=== PATIENT | female | born 1975 | race African-American/Black ===

== ENCOUNTER 2021-02-03 01:14 | Emergency (ER) | payer SELFPAY ==
--- NOTE | 2021-02-03 02:00 | NUR ---
PT REFUSING TRIAGE AT THIS TIME. PT SITTING IN LOBBY.
--- NOTE | 2021-02-03 02:33 | NUR ---
CALLED NAME AT THIS TIME, NO ANSWER IN LOBBY OR OUTSIDE.
--- NOTE | 2021-02-03 02:41 | NUR ---
PATIENT ELOPED FROM FACILITY. DISCHARGE INSTRUCTIONS NOT GIVEN TO PATIENT. DR. HERNANDEZ NOTIFIED.
== END 2021-02-03 02:42 | disposition left against medical advice (07) ==
LOC: MED 01:14
DX: Z53.21 Procedure and treatment not carried out due to patient leaving prior to being seen by health care provider (principal)